=== PATIENT | female | born 1955 | race Caucasian/White ===

== ENCOUNTER → 2018-05-07 | Outpatient (CLI) | payer BC, OTHER | END | disposition home or self-care (01) | LOC: LAB SHORT 10:30 → PLD 10:30 | DX: D48.5 Neoplasm of uncertain behavior of skin (principal) | CPT/HCPCS: 88305 ==

== ENCOUNTER → 2021-08-19 | Outpatient (CLI) | payer BC, OTHER ==
[2021-08-24 17:28] LABS: HPV 16 Negative (Negative); HPV 18 Negative (Negative); HPV OTHER HR TYPES Negative (Negative)
== END | disposition home or self-care (01) ==
LOC: LAB 15:35 → LAB SHORT 15:35
PROVIDERS: Advanced Practice Midwife
DX: Z01.411 Encounter for gynecological examination (general) (routine) with abnormal findings (principal)
CPT/HCPCS: 87624; G0123

== ENCOUNTER 2024-08-19 10:05 | Day surgery (SDC) | payer MEDICARE ==
[~2024-08-19] VITALS: Ht 165.1 cm; Wt 88.9 kg
[2024-08-19] VITALS (13 sets, daily range): BP systolic 107–127; BP diastolic 55–77
[~2024-08-19 10:05] MED LIST: EPINEPhrine HCl 1 MG / ML 30ML Vial ONE; Lidocaine 1%-Epineph 1:200000 30 ML SDV ONE
[2024-08-19] MEDS ORDERED: IPRATROPIUM BRO30 ML NS (10:37)
[2024-08-19] MEDS ORDERED: OXYC5 PO (10:38)
[2024-08-19] MEDS ORDERED: PRED20 PO (10:38)
[2024-08-19] MEDS ORDERED: POTASSIUM CHLORIDE (10:39)
[2024-08-19] MEDS ORDERED: CLAR500CR (10:39)
[2024-08-19] MEDS ORDERED: ZYRTEC10 M2 PO (10:40)
[2024-08-19] MEDS ORDERED: TRIA50 PO (10:40)
[2024-08-19] MEDS ORDERED: LOSA50 PO (10:40)
[2024-08-19] MEDS ORDERED: Flonase 0.05% N16 GM (10:41)
[2024-08-19] MEDS ORDERED: MONT10T PO (10:41)
[2024-08-19] MEDS ORDERED: Lactated Ringer's 1,000 ML IV ONE ×3 (10:54→15:45)
--- NOTE | 2024-08-19 10:59 | NUR ---
08/19/24 1059 SHALINI SINGLETON SPOUSE BILL AT BEDSIDE.
[2024-08-19] MEDS ORDERED: Tranexamic Acid 100 ML IV ONE ×2 (11:15→15:27)
[2024-08-19] MEDS ORDERED: FentaNYL Citrate 50 MCG/ML 2 ML Injection ONE ×5 (12:23→17:50)
[2024-08-19] MEDS ORDERED: Midazolam HCl 1MG / ML 2ML Vial ONE ×2 (12:23→16:13)
[2024-08-19] MEDS ORDERED: Rocuronium Bromide 10 MG/ML 5ML Injection IV ONE ×2 (12:23→16:15)
[2024-08-19] MEDS ORDERED: propofoL 20 ML IV ONE ×2 (12:23→16:12)
--- NOTE | 2024-08-19 13:21 | NUR ---
08/19/24 1321 Taryn Franks STARTED PER DR. SAM AT 2309
[2024-08-19] MEDS ORDERED: Ondansetron HCl 2 MG / ML 2ML Vial ONE ×3 (14:08→18:19)
[2024-08-19] MEDS ORDERED: Sugammadex Sodium 200 MG/2ML SDV (100 MG/ML) ONE ×2 (14:16→17:13)
--- NOTE | 2024-08-19 14:35 | NUR ---
08/19/24 1435 Lori Wood PT ASLEEP UPON ARRIVAL TO PACU. REPORT RECEIVED FROM HOUSEKEEPER/LAUNDRY ASSISTANT AND MDA. PATIENT UNABLE TO ANSWER QUESTIONS OR FOLLOW COMMANDS AT THIS TIME. VSS. PATIENT MOVED SELF FROM SUPINE TO LYING ON LEFT SIDE. NO DRAINAGE ON GAUZE UNDER NOSE. IV PATENT.
[2024-08-19] MEDS ORDERED: HYDROmorphone HCl/Pf 1MG SYR ONE (15:05)
--- NOTE | 2024-08-19 15:12 | NUR ---
08/19/24 1512 Lori Wood CHANGED AND PATIENT REPOSITIONED. PATIENT REPORTS PAIN STILL 8/10 AFTER MEDICATION. MORE MEDICATION GIVEN IVP.
[2024-08-19] MEDS ORDERED: Oxymetazoline 0.05% Nasal Relief Spray 15mL BTL ONE ×2 (15:27→15:39)
[2024-08-19] MEDS ORDERED: Dexamethasone Sod Phos 10 MG/ML 1ML VIAL ONE (16:13)
[2024-08-19] MEDS ORDERED: EPINEPhrine HCl 1 MG / ML 30ML Vial ONE (16:14)
[2024-08-19] MEDS ORDERED: SuccINYLCHOLINE Chloride 100 MG/5 ML 5MLSYR ONE (16:15)
--- NOTE | 2024-08-19 16:39 | NUR ---
PRE-OP NOTE PT TRANSFERR[facility] TO [facility] FOR POST OP BLEEDING. PT VSS. PT HAS MOUSTACHE DRESSING IN PLACE WITH MILD BLOODY DRAINAGE NOTED. PT WITHDRAWN AND QUIET. Pre-Op teaching done. Pt verbalizes understanding.
--- NOTE | 2024-08-19 17:05 | NUR ---
08/19/24 1705 Christina Bates NO PREOP ANTIBIOTICS PER .
[2024-08-19] MEDS ORDERED: Metoclopramide HCl 5MG / ML 2ML Vial IV PRN (18:05)
[2024-08-19] MEDS ORDERED: HYDROmorphone HCl/Pf 1MG SYR IV PRN (18:05)
[2024-08-19] MEDS ORDERED: HydrALAZINE HCl 20 MG / ML 1ML Vial IV PRN (18:05)
[2024-08-19] MEDS ORDERED: Ondansetron HCl 2 MG / ML 2ML Vial IV PRN (18:05)
[2024-08-19] MEDS ORDERED: FentaNYL Citrate 50 MCG/ML 2 ML Injection IV PRN ×2 (18:05)
[2024-08-19] MEDS ORDERED: Atropine Sulfate 0.1 MG/ML 10ML SYR IV PRN (18:05)
[2024-08-19] MEDS ORDERED: ePHEDrine Sulfate 50 MG/ML 1ML Injection IV PRN (18:05)
== END 2024-08-19 23:18 | disposition home or self-care (01) ==
LOC: ORSCSDS 10:05 → ORSCMMR 16:19 → ORSCSDS 23:18
PROVIDERS: Otolaryngology
PROC: 09DR4ZZ Extraction of Left Maxillary Sinus, Percutaneous Endoscopic Approach (ICD-10-PCS; principal; 2024-08-19 09:00)
PROC: 09DX4ZZ Extraction of Left Sphenoid Sinus, Percutaneous Endoscopic Approach (ICD-10-PCS; principal; 2024-08-19 09:00)
PROC: 09DQ4ZZ Extraction of Right Maxillary Sinus, Percutaneous Endoscopic Approach (ICD-10-PCS; principal; 2024-08-19 09:00)
DX: J32.8 Other chronic sinusitis (principal); J30.1 Allergic rhinitis due to pollen; J95.830 Postprocedural hemorrhage of a respiratory system organ or structure following a respiratory system procedure; R04.0 Epistaxis; I10 Essential (primary) hypertension; E66.9 Obesity, unspecified; Z68.32 Body mass index [BMI] 32.0-32.9, adult
CPT/HCPCS: 88304; A9270; C1713; C2625; J0171; J0330; J1100; J1171; J2250; J2405; J2704; J3010; J7120